=== PATIENT | female | born 1950 | race Caucasian/White ===

== ENCOUNTER 2016-09-29 11:47 | Emergency (ER) | payer OTHER, BC ==
[2016-09-29 12:06] VITALS: BP 173/100; PULSE 54; RESP 16; TEMP 97.5; O2SAT 96
[2016-09-29] MEDS ORDERED: PROPARACAINE 0.5% 15 ML OPHT DROP LEFTEYE ONE (12:11)
--- NOTE | 2016-09-29 12:25 | UCPHY ---
H & P Time Seen by Provider: 09/29/16 11:58 Patient Type: New HPI/ROS: CHIEF COMPLAINT: Left eye irritation and discharge HPI: The patient is a 66-year-old female with a history of prior cataract surgery. She reports increasing left eye irritation followed by some mild green discharge upon awakening this morning over the last 3 days. The patient states she has been exposed to very windy conditions, possible allergens and recently completed a road trip with the windows down. She denies any known foreign body. She denies fever. She denies vision changes. She states this feels like prior episodes of conjunctivitis. REVIEW OF SYSTEMS: Aside from elements discussed in the HPI, a comprehensive 10-point review of systems was reviewed and is negative. PMH: Cataract surgery SOCIAL HISTORY: . Denies drug abuse. FAMILY HISTORY: Reviewed, noncontributory PHYSICAL EXAM: General:Patient is alert, in no acute distress. ENT: Right eye is normal to inspection. Left eye is diffusely mildly erythematous with evidence of some greenish discharge around lid. Pupil is round and reactive to light. Anterior chambers clear. There is no hyphema. There is no obvious foreign body. Neuro: Oriented x3. Normal motor function. Normal sensory function. Smoking Status: Never smoked Constitutional: Initial Vital Signs Temperature (C) 36.4 C 09/29/16 11:50 Heart Rate 54 L 09/29/16 11:50 Respiratory Rate 16 09/29/16 11:50 Blood Pressure 173/100 H 09/29/16 11:50 O2 Sat (%) 96 09/29/16 11:50 O2 Delivery Mode Room Air Allergies/Adverse Reactions: cephalexin monohydrate [From Keflex] Allergy (Intermediate, Verified 09/29/16 12 :01) Vomiting Home Medications: Medication Instructions Recorded Fluticasone Nasal [Flonase Nasal 1 sprays NASAL HS 10/20/15 [place]] Meloxicam [Mobic 15 mg] 15 mg PO DAILY 10/20/15 Warfarin Sodium [Coumadin 5MG (*)] 2.5 mg PO TH@10/20/15 Warfarin Sodium [Coumadin 5MG (*)] 5 mg PO SUMOTUWEFRSA@10/20/15 amLODIPine BESYLATE [Norvasc] 2.5 mg PO DAILY #30 tab 10/21/15 Ofloxacin 0.3% [Ocuflox 0.3%] 1 drops LEFTEYE QID 5 Days 09/29/16 MDM/Departure - MDM Medications Given: Discontinued Medications Proparacaine HCl (Alcaine 0.5%) 1 drops LEFTEYE ONCE ONE Stop: 09/29/16 12:12 Last Admin: 09/29/16 12:15 Dose: 1 drop ED Course/Re-evaluation: Slit-lamp exam and fluorescein dye exam were performed. Anterior chambers clear and there is diffuse corneal irritation, but no focal corneal abrasion or ulcer. I think this likely represents possible infectious versus allergic conjunctivitis or less likely diffuse corneal abrasion from dust. I see no indication for irrigation at this time. The patient will be placed on Ocuflox drops and given instructions to follow up up with her bingo caller. She is comfortable with this plan. - Depart Disposition: Home, Routine, Self-Care Clinical Impression: Conjunctivitis Qualifiers: Conjunctivitis type: acute Acute conjunctivitis type: unspecified Laterality: left Qualified Code(s): H10.32 - Unspecified acute conjunctivitis, left eye Condition: Good Instructions: Conjunctivitis (ED) Additional Instructions: Return to the ER or Urgent Care for worsening pain, worsening vision, fever or other concerns. Follow up with the bingo caller within 1 week. Prescriptions: Ofloxacin 0.3% [Ocuflox 0.3%] 1 drops LEFTEYE QID 5 Days Referrals: Unknown,Unknown [Primary Care Provider] - As per Instructions - PQRS PQRS Measurement: 134: Depression screening and followup, PRIME MD-PHQ2 (12 years and older) Over the last 2 weeks, how often have you been bothered by any of the following problems? 1. Feeling down, depressed, or hopeless? 2. Little interest or pleasure in doing things? Patient answered no to both 1 and 2 130: Documentation of medications. Reviewed all patient medications, doses, route and frequency. 226: Do you smoke? No. 51: 18 years old and older with diagnosis of COPD, spirometry performance. Spirometry not performed; equipment not available. Patient has no history of COPD 52: 18 years old and older with COPD and symptoms of COPD or FEV1<60% predicted prescribed a B Agonist. Spirometry not performed; equipment not available.
== END 2016-09-29 12:35 | disposition home or self-care (01) ==
LOC: CED 11:47
DX: H10.32 Unspecified acute conjunctivitis, left eye (principal); Z98.49 Cataract extraction status, unspecified eye
CPT/HCPCS: 99203-PO; G0463-PO

== ENCOUNTER → 2017-03-26 | Outpatient (CLI) | payer OTHER | LOC: CIMAGING 14:22 | PROVIDERS: ATTEND Family Medicine | DX: Z12.31 Encounter for screening mammogram for malignant neoplasm of breast (principal); Z80.3 Family history of malignant neoplasm of breast | CPT/HCPCS: G0202 ==

== ENCOUNTER → 2017-05-15 | Outpatient (CLI) | payer OTHER | LOC: CIMAGING 16:09 | PROVIDERS: ATTEND Family Medicine | CPT/HCPCS: 73502-PO; 73551-PO ==

== ENCOUNTER → 2018-04-21 | Outpatient (CLI) | payer OTHER | LOC: CIMAGING 14:09 | PROVIDERS: ATTEND Family Medicine | DX: Z12.31 Encounter for screening mammogram for malignant neoplasm of breast (principal); Z80.3 Family history of malignant neoplasm of breast ==